=== PATIENT | male | born 1995 | race Hispanic/Latino ===

== ENCOUNTER 2023-02-04 18:42 | Emergency (ER) | payer SELFPAY ==
[2023-02-04 19:02] VITALS: BP 141/86; PULSE 81; RESP 16; TEMP 36.8; O2SAT 99
--- NOTE | 2023-02-04 19:12 | ED.ABDPAIN ---
HPI - Abdominal Pain General Chief Complaint: Abdominal Pain Stated Complaint: pain in stomach Time Seen by Provider: 02/04/23 19:12 Source: patient, RN notes reviewed, old records reviewed and teletype clerk (Czech-speaking) Mode of arrival: ambulatory Limitations: no limitations History of Present Illness HPI narrative: 27-year-old male presents to the [facility] with pain in the abdomen. Patient states he has had discomfort in the epigastric area and was evaluated about 8 months ago. States over the last 2 weeks the pain is becoming unbearable. Omeprazole no longer works to help his pain. Related Data Home Medications Medication Instructions Recorded Confirmed omeprazole 40 mg capsule,delayed 40 mg DIRECTED 02/04/23 02/04/23 release Allergies Allergy/AdvReac Type Severity Reaction Status Date / Time No Known Allergies Allergy Verified 02/04/23 19:15 Review of Systems Review of Systems: All systems reviewed & are unremarkable except as noted in HPI and below Constitutional: Constitutional: Reports no additional constitutional complaints Eyes: Eyes: Reports no additional eye complaints ENT: Reports system reviewed and no additional complaints, except as documented Cardiovascular: Cardiovascular: Reports no additional cardiovascular complaints, Denies chest pain and Denies dyspnea Respiratory: Respiratory: Reports no additional respiratory complaints, Denies chest congestion, Denies cough and Denies dyspnea Gastrointestinal: Gastrointestinal: Reports as per HPI, Reports abdominal pain, Reports nausea and Denies vomiting Musculoskeletal: Musculoskeletal: Reports no additional musculoskeletal complaints Integumentary/Breasts: Skin/Breast: Reports system reviewed and no additional complaints, except as docu Neurologic: Reports system reviewed and no additional complaints, except as documented Psychiatric: Psychiatric: Reports no additional psychiatric complaints Allergic/Immunologic: Allergic/Immunologic: Reports no additional allergic/immunologic complaints PMFSH Past Medical History Medical History (Updated 02/04/23 @ 19:29 by Malika Vvieros APRN) H/O gastroesophageal reflux (GERD) Comments At the time of my signature, I reviewed and agree with the nursing past medical, surgical, social, and family history. There is no relevant family history pertinent to the patient complaint. Exam Const: General: cooperative, no acute distress, well developed, alert, ill appearing acutely, uncomfortable and well nourished Nutritional Appearance: well nourished Orientation/consciousness: patient oriented x3 Limitations: no limitations HENMT: Head: normal to inspection Ears: hearing grossly normal bilaterally and external ears normal Face/Nose/Sinus: Normal external nose present, Normal nares present, Normal nasal mucous membranes and turbinates present and normal facial exam Face and sinus: normal facial exam Mouth: Yes Normal oral and palatal mucosa present, Yes lip normal and Yes moist mucous membranes Throat: posterior oropharynx normal and uvula midline Eyes: General: appearance normal, both eyes and all related structures Alignment and Position: alignment normal Periorbital: periorbital findings normal Pupils: Equal, round and reactive pupils present EOM: EOMs intact bilaterally Neck: Neck: normal visual inspection, full ROM, no lymphadenopathy and no meningeal signs Chest: Chest palpation & inspection: normal inspection of the chest Resp: Effort & Inspection: normal respiratory effort and able to speak in complete sentences Auscultation: clear to auscultation bilaterally, no crackles, no rales, no rhonchi and no wheezes Cardio: Rate: regular rate Rhythm: regular rhythm GI: Inspection: distended GI Palp: Yes abdominal tenderness (right upper, epigastric), Yes Soft to palpation, Yes Tenderness to palpation present (GI) and No Guarding due to palpation present (GI) Auscultation: normal bowel soun
== END 2023-02-04 19:30 | disposition short-term general hospital (02) ==
PROVIDERS: Emergency Provider Nurse Practitioner
DX: R10.11 Right upper quadrant pain (principal); R10.13 Epigastric pain; K21.9 Gastro-esophageal reflux disease without esophagitis
CPT/HCPCS: 99202; G0463

== ENCOUNTER 2023-02-04 19:49 | Emergency (ER) | payer SELFPAY ==
--- NOTE | ~2023-02-04 | XR_ITS ---
EXAMINATION: XR chest 1V portable DATE: 02/05/2023 03:44 INDICATION: Epigastric abdominal pain. TECHNIQUE: A single frontal view of the chest was obtained. COMPARISON: None. FINDINGS: The lung volumes are small. There are mild airspace opacities in the lower lung zones. No p leural effusion or pneumothorax. The heart size is normal. IMPRESSION: 1. Small lung volumes with mild airspace opacities in the lower lung zones, likely atelectasis. Reviewed, dictated and finalized at location A. IMPRESSION: 1. Small lung volumes with mild airspace opacities in the lower lung zones, lik cliff atelectasis.
[2023-02-04 20:36] VITALS: BP 140/97; PULSE 79; RESP 80; TEMP 36.4; O2SAT 100
[2023-02-05 02:51] LABS: Basophils Percent Auto 0.5 % (0.2-1.2); Eosinophils Absolute Auto 0.2 K/mm3 (0-0.3); Eosinophils Percent Auto 3.7 % (0-4.4); Hematocrit 44.8 % (42.0-52.0); Hemoglobin 14.8 g/dL (14.0-18.0); Lymphocytes Absolute Auto 2.71 K/mm3 (0.9-3.2); Lymphocytes Percent Auto 47.1 % (18.3-44.2); Mean Corpuscular Hemoglobin 29.1 pg (26-34); Mean Corpuscular Volume 88.2 fl (80-100); Mean Platelet Volume 9.8 fl (7.4-10.4); Monocytes Absolute Auto 0.5 K/mm3 (0.1-0.6); Monocytes Percent Auto 8.7 % (2.6-8.5); Neutrophils Absolute Auto 2.3 K/mm3 (1.3-6.7); Platelet Count Result 242 k/mm3 (150-375); Red Blood Count 5.08 M/mm3 (4.6-6.20); Red Cell Distribution Width 12.6 % (11.5-14.5); White Blood Count 5.8 K/mm3 (4.5-10.0)
[2023-02-05 02:59] LABS: Lipase 137 U/L (23-300)
--- NOTE | 2023-02-05 03:11 | ED.ABDPAIN ---
HPI - Abdominal Pain General Chief Complaint: Abdominal Pain Stated Complaint: abd pain Time Seen by Provider: 02/05/23 02:30 Source: patient Limitations: language barrier History of Present Illness HPI narrative: Ukrainian interpretor used. MD elicited complaint: abdominal pain Pertinent past history: gastritis Onset (ago): month(s) (8) Pain Consistency: now resolved Location: epigastric Severity: similar to previous episodes Quality: fullness and burning Radiation: none Migration to: no migration Exacerbating factors: other (laying down at night) Relieving factors: medication Context: denies foreign travel, denies possible food poisoning, denies sick contacts, denies recent antibiotic use, denies recent surgery/procedure, denies recent injury or confirms history of similar episodes Associated symptoms: denies other symptoms and nausea Related Data Home Medications Medication Instructions Recorded Confirmed omeprazole 40 mg capsule,delayed 40 mg DIRECTED 02/04/23 02/04/23 release Allergies Allergy/AdvReac Type Severity Reaction Status Date / Time No Known Allergies Allergy Verified 02/04/23 20:40 Review of Systems Review of Systems: A 10 system review of systems was completed on the patient and is negative except for what is stated in the HPI. Nursing and ancillary documentation was reviewed. [facility] Past Medical History Medical History (Updated 02/06/23 @ 00:01 by Background Dayosef) H/O gastroesophageal reflux (GERD) Comments At time of signature, I have reviewed and agree with nursing past medical, surgical, social and family history unless otherwise noted. Please see the nursing chart for further information. There is no relevant family history pertinent to the presenting complaint. Exam Narrative: CONST: No acute distress. Well nourished. Appears comfortable sitting in bed. HENMT: Head is normocephalic and atraumatic. Tacky mucous membranes. No posterior oropharynx erythema. EYES: No conjunctival icterus, injection, or pallor. PERRL. NECK: No meningeal signs. RESP: Able to speak in full sentences. Normal respiratory effort. CTAB. CARDIO: Regular rate. Regular rhythm. 2+ DP and radial pulses bilaterally. GI: Nondistended. No tenderness to palpation. Soft. Negative Romero's sign. No McBurney's tenderness to palpation. No palpable mass or hernia. : No CVA tenderness to palpation. SKIN: No rashes or lesions noted on exposed skin. No jaundice. NEURO: Oriented x3. Moves all extremities. EXTREM: No pedal edema. PSYCH: Normal affect. Course Vital Signs Vital signs: Vital Signs Temperature 97.6 F 02/04/23 20:36 Pulse Rate 79 02/04/23 20:36 Respiratory Rate 80 H 02/04/23 20:36 Blood Pressure 140/97 H 02/04/23 20:36 Pulse Oximetry 100 02/04/23 20:36 Oxygen Delivery Room Air 02/04/23 20:36 Temperature 97.9 F 02/05/23 05:20 Pulse Rate 75 02/05/23 05:20 Respiratory Rate 20 02/05/23 05:20 Blood Pressure 138/66 02/05/23 05:20 Pulse Oximetry 100 02/05/23 05:20 Oxygen Delivery Room Air 02/04/23 20:36 MDM - Abdominal Pain MDM Narrative Medical decision making narrative: Patient presents with the above complaint. Initial vitals are remarkable for no significant abnormalities. Patient appears in no acute distress. Physical examination notable for no abdominal tenderness to palpation. Plan discussed: laboratory analysis. EKG and chest XR ordered in triage and reviewed. Patient ordered 1L bolus IVF LR, famotidine 20 mg IVP, zofran 4 mg IVP, GI cocktail, tylenol 1 g PO. Presentation not consistent with ACS. Symptoms ongoing for past 8 months. Never seen gastroenterology as follow up. Unable to rule out biliary colic versus cholecystitis versus gastritis versus GERD versus PUD. No earth science technician present in department at this time. Patient tolerating PO without worsening/recurrence of pain. Pain improved with medications. Likely GERD but
[2023-02-05 03:15] VITALS: BP 139/101; PULSE 82; RESP 19; TEMP 36.7; O2SAT 100
[2023-02-05 03:19] LABS: Appearance Urine Clear (Clear); Bilirubin Urine Negative (Negative); Blood Urine Negative (Negative); Color Urine Yellow (Yellow); Glucose Urine UA Negative (Negative); Ketones Urine Negative (Negative); Leukocyte Esterase Ur Negative LEU/UL (Negative); Nitrate Urine Negative (Negative); Protein Urine Negative (Negative); Urobilinogen Urine 0.2 mg/dL (<2.0)
--- NOTE | 2023-02-05 03:19 | ECG_ITS ---
Measurements Intervals [place] Rate: 72 P: 33 IL: 158 QRS: 12 QRSD: 84 T: 23 QT: 375 QTc: 412 Interpretive Statements SINUS RHYTHM ST ELEVATION IN DIFFUSE LEADS- PROBABLY EARLY REPOLARIZATION ABNORMALITY BASELINE ARTIFACT- I, II, AVR, AVL BORDERLINE ECG NO PREVIOUS ECG AVAILABLE FOR COMPARISON Electronically Signed On 02-05-2023 8:17:45 CDT by Mark Zhao D.O.
[2023-02-05 03:29] LABS: Alanine Aminotransferase 115 U/L (6-50); Albumin Level 4.5 g/dL (3.5-5.1); Alkaline Phosphatase 83 U/L (38-126); Anion Gap 10 mmol/L (8-16); Aspartate Amino Transferase 61 U/L (17-59); Bilirubin,Total 0.5 mg/dL (0.2-1.3); Blood Urea Nitrogen 14 mg/dL (9-20); Calcium 9.2 mg/dL (8.4-10.2); Carbon Dioxide 28 mmol/L (22-30); Chloride 103 mmol/L (98-107); Estimated Glomerular Filt Rate > 60; Glucose 104 mg/dL (65-110); Potassium 4.2 mmol/L (3.4-5.0); Sodium 141 mmol/L (137-145)
[2023-02-05] MEDS: BELLADONNA ALK/PHENOB ELIX 10 ML, MAG HYDROX/ALUMINUM HYD/SIMETH 30 ML, LIDOCAINE HCL 2... PO (03:29)
[2023-02-05] MEDS: ACETAMINOPHEN 500 MG TABLET 1000 MG PO (03:29)
[2023-02-05 03:31] LABS: Add Urine Microscopic? NO
[2023-02-05] MEDS: ONDANSETRON INJ 4 MG/2 ML VIAL IV PUSH (03:31)
[2023-02-05] MEDS: FAMOTIDINE 20 MG/2 ML VIAL IV PUSH (03:33)
[2023-02-05] MEDS: LACTATED RINGERS 1,000 ML 999 ML IV CONT (03:35)
[2023-02-05 05:20] VITALS: BP 138/66; PULSE 75; RESP 20; TEMP 36.6; O2SAT 100
== END 2023-02-05 05:21 | disposition home or self-care (01) ==
PROVIDERS: Emergency Provider Student in an Organized Health Care Education/Training Program
DX: K29.70 Gastritis, unspecified, without bleeding (principal); K21.9 Gastro-esophageal reflux disease without esophagitis; R94.31 Abnormal electrocardiogram [ECG] [EKG]
CPT/HCPCS: 36415; 71045; 80053; 81003; 83690; 85025; 93005; 96361; 96374; 96375; 99284; A9270; J2405; J7120